=== PATIENT | male | born 1975 | race Caucasian/White ===

== ENCOUNTER 2017-07-07 00:49 | Emergency (ER) | payer OTHER ==
[2017-07-07] MEDS: HYDROmorphONE 0.5 MG/0.5 ML SYG IV (01:31)
[2017-07-07] MEDS: DIPHTH/TET/ACEL PERTUSS (ADULT) 0.5 ML VIAL IM* (01:32)
[2017-07-07] MEDS: CEFTRIAXONE 1 GM/50 ML (PMX) 50 ML IVPB (01:33)
[2017-07-07] MEDS: SOD CHLORIDE 0.9% 1,000 ML IV (01:33)
[2017-07-07] MEDS: ONDANSETRON 4 MG INJ IV (01:33)
[2017-07-07 01:48] LABS: ADD MAN DIFF? NO
[2017-07-07 01:49] LABS: WHITE BLOOD COUNT 11.4 10^3/ul (4.8-10.8)
[2017-07-07 01:50] LABS: BASOPHILS % 0.3 % (0.0-2.0); EOSINOPHILS # 0.1 10^3/ul (0.0-0.5); EOSINOPHILS % 0.8 % (0.0-7.0); HEMATOCRIT 41.3 % (42.0-52.0); HEMOGLOBIN 14.1 g/dl (14.0-18.0); LYMPHOCYTES # 2.9 10^3/ul (0.8-2.9); LYMPHOCYTES % 25.6 % (15.0-51.0); MEAN CORPUSCULAR HEMOGLOBIN 29.3 pg (29.0-33.0); MEAN CORPUSCULAR HGB CONC 34.1 g/dl (32.0-37.0); MEAN CORPUSCULAR VOLUME 85.9 fl (82.0-101.0); MEAN PLATELET VOLUME 10.2 fl (7.4-10.4); MONOCYTE # 0.6 10^3/ul (0.3-0.9); MONOCYTES % 5.1 % (0.0-11.0); NEUTROPHIL # 7.8 10^3/ul (1.6-7.5); NEUTROPHILS % 67.8 % (39.0-77.0); PLATELET COUNT 255 10^3/UL (140-415); RED BLOOD COUNT 4.81 10^6/ul (4.70-6.10); RED CELL DISTRIBUTION WIDTH 12.6 % (11.5-14.5)
[2017-07-07 02:12] LABS: ANION GAP 18 (8-16); BLOOD UREA NITROGEN 16 mg/dl (7-20); CARBON DIOXIDE 25 mmol/L (21-31); CHLORIDE 104 mmol/L (97-110); CREATININE 0.88 mg/dl (0.61-1.24); GLUCOSE 112 mg/dl (70-220); POTASSIUM 3.3 mmol/L (3.5-5.1); SODIUM 144 mmol/L (135-144)
[2017-07-07 02:29] LABS: ETHANOL < 10.0 mg/dl
[2017-07-07] MEDS: ONDANSETRON (ODT) 4 MG TAB ODT (05:48)
== END 2017-07-07 09:38 | disposition home or self-care (01) ==
LOC: E/R 00:49
DX: S06.0X0A Concussion without loss of consciousness, initial encounter (principal); S00.03XA Contusion of scalp, initial encounter; S02.2XXA Fracture of nasal bones, initial encounter for closed fracture; Y08.89XA Assault by other specified means, initial encounter; Z23 Encounter for immunization
CPT/HCPCS: 36415; 70450; 70486; 71045; 72125; 80048; 80306; 85025; 90471; 90715; 96374; 96375; 96376; 99285-25

== ENCOUNTER 2017-07-13 14:49 | Emergency (ER) | payer OTHER | END 2017-07-13 15:16 | disposition home or self-care (01) | LOC: E/R 14:49 | DX: Z48.02 Encounter for removal of sutures (principal) | CPT/HCPCS: 99281 ==